=== PATIENT | female | born 1960 | race Caucasian/White ===

== ENCOUNTER 2017-12-18 15:08 | Outpatient (REF) | payer BC, SELFPAY ==
[2017-12-18 20:00] LABS: TSH 80.45 uIU/mL (0.358-3.74)
== END 2017-12-18 15:28 ==
LOC: NCHCN 15:08
PROVIDERS: PCP Nurse Practitioner; Visit Provider Nurse Practitioner Family
DX: E03.9 Hypothyroidism, unspecified (principal)
CPT/HCPCS: 84443

== ENCOUNTER 2018-02-11 01:39 | Outpatient (RCR) | payer BC, SELFPAY ==
[2018-02-11] MEDS: Cosyntropin 0.25 MG VIAL IJ (07:39)
== END 2018-02-14 23:59 | disposition home or self-care (01) ==
LOC: INF 01:39
PROVIDERS: PCP Nurse Practitioner; Visit Provider Family Medicine
DX: E03.9 Hypothyroidism, unspecified (principal)
CPT/HCPCS: 36415; 82533; 96372; J0834

== ENCOUNTER 2018-02-11 02:00 | Outpatient (CLI) | payer BC, SELFPAY ==
[2018-02-11 09:45] LABS: TSH (W/Ref FT4) 39.05 uIU/mL (0.358-3.74)
[2018-02-11 10:03] LABS: FREE T4 0.73 ng/dL (0.76-1.46)
== END 2018-02-11 02:20 ==
PROVIDERS: PCP Nurse Practitioner; Visit Provider Nurse Practitioner Family
DX: E03.9 Hypothyroidism, unspecified (principal)
CPT/HCPCS: 36415; 84439; 84443

== ENCOUNTER 2018-04-22 15:16 | Outpatient (REF) | payer BC, SELFPAY ==
[2018-04-22 16:37] LABS: TSH 7.48 uIU/mL (0.358-3.74)
== END 2018-04-22 15:36 ==
LOC: NCHCN 15:16
PROVIDERS: PCP Nurse Practitioner; Visit Provider Nurse Practitioner Family
DX: E03.9 Hypothyroidism, unspecified (principal)
CPT/HCPCS: 84443

== ENCOUNTER 2018-07-14 09:02 | Outpatient (REF) | payer BC, SELFPAY ==
[2018-07-14 13:21] LABS: TSH 0.38 uIU/mL (0.358-3.74)
== END 2018-07-14 09:22 ==
LOC: NCHCN 09:02
PROVIDERS: PCP Nurse Practitioner; Visit Provider Nurse Practitioner Family
DX: E03.9 Hypothyroidism, unspecified (principal)
CPT/HCPCS: 84443

== ENCOUNTER 2018-09-16 10:14 | Outpatient (REF) | payer BC, SELFPAY ==
[2018-09-16 12:35] LABS: TSH (W/Ref FT4) 1.09 uIU/mL (0.358-3.74)
== END 2018-09-16 10:34 ==
LOC: NCHCN 10:14
PROVIDERS: PCP Nurse Practitioner; Visit Provider Nurse Practitioner Family
DX: E03.9 Hypothyroidism, unspecified (principal)
CPT/HCPCS: 84443

== ENCOUNTER 2019-01-26 01:16 | Outpatient (CLI) | payer BC, SELFPAY ==
[2019-01-26 13:06] LABS: CREATININE 0.87 mg/dL (0.55-1.02)
--- NOTE | 2019-01-26 14:25 | DI.CT_ITS ---
EXAM: CT CHEST W CLINICAL HISTORY: ABNORMAL WEIGHT LOSS R63.4, CERVICAL LYMPHADENOPATHY R59.0, HX TOBACCO USE, Z87.89 1 TECHNIQUE: Imaging Protocol: Axial computed tomography images with coronal and sagittal reformatted images were created and reviewed CONTRAST MATERIAL: Intravenous: Omnipaque 350 Contrast volume:structured data in ml Contrast route:I V - Oral: No COMPARISON: No exams were available for comparison FINDINGS: Tracheobronchial tree: Patent where visualized. Mediastinum and Saundra: No dominant adenopathy or fluid collection. Pulmonary parenchyma: Centrilobular emphysematous changes are present in the lungs. There is a calci fied pulmonary nodule in the left lower lobe consistent with prior granulomatous disease. There is a 0.4 cm nodule adjacent to the right minor fissure. No other pulmonary nodules are present. No area s of consolidation are present. No architectural distortion. Pleura: No effusion or pneumothorax. Heart/Aorta: Likely reflects atherosclerosis of the thoracic aorta. No evidence of a thoracic aortic aneurysm. There is no cardiomegaly. No pericardial effusion is seen. Upper abdomen: There are several hypodensities seen within the liver. Several of these are too smal l for further characterization but likely reflect small cysts. There is a 2.5 x 2.5 cm mass in the i nferior aspect of the liver. It is incompletely imaged on this examination. There does appear to be some enhancement. This may represent a hemangioma. CT scan of the abdomen is recommended for furth er evaluation of the liver. Lymph nodes: No significant mediastinal, hilar or axillary adenopathy is present. Bones: Degenerative changes are seen in the spine. IMPRESSION: 1. No thoracic adenopathy. 2. 0.4 cm noncalcified pulmonary nodule on the right. A follow-up CT scan of the chest in 6-12 month s is recommended for re-evaluation. Please correlate with patient's past medical history including s moking. 3. Density seen within the liver. One of which shows some enhancement. This is incompletely imaged on the current examination. A CT scan of the abdomen using the hemangioma protocol is recommended fo r further evaluation. DATA REPOSITORY: All CT scans at this facility are submitted to the National Radiology Data Registry (NRDR) Dose Index Registry (DIR) with the [employer] ([employer]). RADIATION OPTIMIZATION: All CT scans at this facility use at least one of these dose optimization te chniques: automated exposure control; mA and/or kV adjustment per patient size (includes targeted exa ms where dose is matched to clinical indication); or iterative reconstruction.
--- NOTE | 2019-01-26 14:26 | DI.CT_ITS ---
EXAM: CT NECK W CLINICAL HISTORY: ABNORMAL WEIGHT LOSS R63.4, CERVICAL LYMPHADENOPATHY R59.0, HX TOBACCO USE, Z87.89 1 COMPARISON: No exams were available for comparison FINDINGS: There are communications among the jugular veins which are normal variants. The parotid and submandibular glands are unremarkable. The thyroid gland is unremarkable. No significant cervical adenopathy is present. The oropharynx, hypopharynx, and larynx are all unremarkable. The epiglottis is unremarkable. The retropharyngeal space is unremarkable. The airway is unremarkable. No focal fluid collection is seen in the soft tissues to suggest an abscess. The visualized paranasal sinuses are clear. Degenerative changes are seen in the cervical spine, particularly at C5-C6 and C6-C7. IMPRESSION: No significant cervical adenopathy. No evidence of a soft tissue mass or focal fluid collection.
[2019-01-26] MEDS: Omnipaque 350 MG/ML 100 ML BTL IV (14:28)
== END 2019-01-26 01:36 ==
PROVIDERS: PCP Nurse Practitioner; Visit Provider Nurse Practitioner Family
DX: R63.4 Abnormal weight loss (principal); R91.8 Other nonspecific abnormal finding of lung field; R59.0 Localized enlarged lymph nodes; K76.89 Other specified diseases of liver; Z87.891 Personal history of nicotine dependence; Z13.89 Encounter for screening for other disorder
CPT/HCPCS: 70491; 71260; 82565; J3490

== ENCOUNTER 2019-03-16 13:41 | Outpatient (REF) | payer BC, SELFPAY ==
[2019-03-16 14:58] LABS: HCT 44.9 % (36.0-46.0); HGB 14.9 g/dL (12.0-15.5); Mean Corp. HGB Concentration 33.2 g/dL (32.0-36.0); Mean Corpuscular Hemoglobin 30.3 pg (27.0-33.0); Mean Corpuscular Volume 91.4 fL (80-95); Mean Platelet Volume 10.6 fL (8.0-11.0); Platelet Count 259 x1000/uL (130-400); RBC 4.91 m/cumm (4.00-5.20); RBC Distribution Width 14.1 % (11.7-14.6); White Blood Cell Count 6.22 k/cumm (4.4-10.8)
[2019-03-16 15:17] LABS: ALT 20 U/L (14-59); AST 14 U/L (15-37); Albumin 4.3 g/dL (3.4-5.0); Alkaline Phosphatase 53 U/L (46-116); Anion Gap 8.9 mmol/L (3-11); BUN 21 mg/dL (7-18); Bilirubin, Total 0.4 mg/dL (0.2-1.0); CO2 28.1 mmol/L (21.0-32.0); CREATININE 0.66 mg/dL (0.55-1.02); Calcium 9.3 mg/dL (8.5-10.1); Calculated LDL 122 mg/dL; Chloride 107 mmol/L (98-107); Cholesterol 193 mg/dL (<200); Glucose 76 mg/dL (74-106); HDL Cholesterol 55 mg/dL (40-60); Potassium 3.9 mmol/L (3.5-5.1); Sodium 144 mmol/L (136-145); Triglyceride 80 mg/dL (<150)
[2019-03-17 10:59] LABS: Hepatitis C Ab w Rflx HCV PCR Negative (Negative)
[2019-03-17 14:47] LABS: HIV-1/2 Ag & Ab Screen Negative (Negative)
== END 2019-03-16 14:01 ==
LOC: NCHCN 13:41
PROVIDERS: PCP Nurse Practitioner; Visit Provider Nurse Practitioner Family
DX: Z00.00 Encounter for general adult medical examination without abnormal findings (principal); E03.9 Hypothyroidism, unspecified; Z11.3 Encounter for screening for infections with a predominantly sexual mode of transmission; Z11.4 Encounter for screening for human immunodeficiency virus [HIV]; Z13.220 Encounter for screening for lipoid disorders; Z11.59 Encounter for screening for other viral diseases
CPT/HCPCS: 80053; 80061; 85027; 86803; 87389; 84443

== ENCOUNTER 2020-06-02 09:54 | Outpatient (REF) | payer BC, SELFPAY ==
[2020-06-02 15:26] LABS: HCT 45.8 % (36.0-46.0); HGB 14.9 g/dL (11.2-15.7); MCHC 32.5 % (32.0-36.0); MCV 95.4 fL (80-95); MPV 9.8 fL (8.0-11.0); Platelet Count 277 10^3/uL (130-400); RDW 12.7 % (11.7-14.6); RDW-SD 45.1 fL; WBC 7.15 10^3/uL (4.4-10.8)
[2020-06-02 16:14] LABS: Anion Gap 8.7 mmol/L (3-11); BUN 21 mg/dL (7-18); CO2 26.3 mmol/L (21.0-32.0); CREATININE 0.7 mg/dL (0.55-1.02); Calcium 9.4 mg/dL (8.5-10.1); Chloride 107 mmol/L (98-107); Glucose 73 mg/dL (74-106); Potassium 4.3 mmol/L (3.5-5.1); Sodium 142 mmol/L (136-145); TSH (W/Ref FT4) 1.62 uIU/mL (0.36-3.74)
[2020-06-03 09:38] LABS: HIV-1/2 Ag & Ab Screen Negative (Negative)
== END 2020-06-02 09:55 | disposition home or self-care (01) ==
LOC: NCHCN 09:54
PROVIDERS: PCP Nurse Practitioner; Visit Provider Nurse Practitioner Family
DX: Z00.00 Encounter for general adult medical examination without abnormal findings (principal); E03.9 Hypothyroidism, unspecified; R63.4 Abnormal weight loss; Z11.4 Encounter for screening for human immunodeficiency virus [HIV]; M85.88 Other specified disorders of bone density and structure, other site
CPT/HCPCS: 80048; 85027; 87389; 84443

== ENCOUNTER 2020-07-19 07:53 | Outpatient (REF) | payer BC, SELFPAY ==
[2020-07-19 14:44] LABS: TSH (W/Ref FT4) 4.25 uIU/mL (0.36-3.74)
[2020-07-19 15:00] LABS: FREE T4 1.08 ng/dL (0.76-1.46)
== END 2020-07-19 07:54 | disposition home or self-care (01) ==
LOC: NCHCN 07:53
PROVIDERS: PCP Nurse Practitioner; Visit Provider Nurse Practitioner Family
DX: E03.9 Hypothyroidism, unspecified (principal)
CPT/HCPCS: 84439; 84443

== ENCOUNTER → 2023-10-23 09:09 | Outpatient (BNVA) | payer MEDICARE, BC, SELFPAY | PROVIDERS: PCP Internal Medicine; Referring Provider Internal Medicine; Visit Provider Physician Assistant Surgical | DX: J44.9 Chronic obstructive pulmonary disease, unspecified (principal); F17.200 Nicotine dependence, unspecified, uncomplicated | CPT/HCPCS: 99214 ==

== ENCOUNTER 2024-11-13 00:43 | Outpatient (CLI) | payer MEDICARE, BC, SELFPAY ==
--- NOTE | 2024-11-13 09:43 | DI.RAD_ITS ---
Exam(s) XR CHEST 2V PA LATERAL EXAM: XR CHEST 2V PA LATERAL CLINICAL HISTORY: dyspnea,R06.00. TECHNIQUE: 2D digital imaging was performed. COMPARISON: CR XR CHEST 2VW (D) from 07/05/[address] CHEST LOW DOSE CA SCREENING from 09/23/2023 FINDINGS: 2 views: Heart size is normal. The mediastinum is not widened. No new infiltrates. Platelike atelectasis in the right lung base is unchanged from outside chest x-ray 07/05/2023. There is unchanged blunting of both costophrenic angles which may indicate chronic pleural thickening or pleural effusions. I note that this finding was present on outside chest x-ray 0 07/05/2023. There are no pleural effusions evident on outside chest CT scan of 09/23/2023. IMPRESSION: Findings as above. However, no radiographic change compared to outside chest x- ray of 07/05/2023. DATA REPOSITORY: RADIATION DOSE DELIVERED:
== END 2024-11-13 01:03 ==
PROVIDERS: PCP Internal Medicine; Visit Provider Internal Medicine Pulmonary Disease
DX: R06.00 Dyspnea, unspecified (principal); J98.11 Atelectasis
CPT/HCPCS: 71046

== ENCOUNTER → 2024-11-17 09:13 | Outpatient (BNVA) | payer MEDICARE, BC, SELFPAY | PROVIDERS: PCP Internal Medicine; Referring Provider Internal Medicine; Visit Provider Internal Medicine Pulmonary Disease | DX: J44.9 Chronic obstructive pulmonary disease, unspecified (principal); F17.210 Nicotine dependence, cigarettes, uncomplicated; Z23 Encounter for immunization | CPT/HCPCS: 99214 ==